=== PATIENT | female | born 1995 | race Caucasian/White ===

== ENCOUNTER 2018-10-18 23:31 | Emergency (ER) | payer OTHER ==
[2018-10-19] MEDS: ONDANSETRON (ODT) 4 MG TAB ODT (01:34)
== END 2018-10-19 01:52 | disposition home or self-care (01) ==
LOC: FTE 23:31
DX: R19.7 Diarrhea, unspecified (principal); R11.2 Nausea with vomiting, unspecified
CPT/HCPCS: 81025; 99283